=== PATIENT | male | born 2000 | race Caucasian/White ===

== ENCOUNTER 2019-03-24 03:14 | Emergency (ER) | payer MEDICAID ==
[2019-03-24] MEDS ORDERED: Tetracaine HCl/PF 0.5% 4 ML Bottle EYELF ONE (03:39)
[2019-03-24] MEDS ORDERED: Balanced Salt Solution Ophth Irrig 30 ML Bottle EYELF ONE (03:44)
[2019-03-24] MEDS ORDERED: Bacitracin/Polymyxin B Ophth Oint 3.5 GM Tube ONE (04:00)
--- NOTE | 2019-03-24 04:06 | EDM.PDOC ---
ED HPI GENERAL MEDICAL PROBLEM - General Stated Complaint: Left eye irritation Time Seen by Provider: 03/24/19 03:30 Source of Information: Reports: Patient History Limitations: Reports: No Limitations - History of Present Illness INITIAL COMMENTS - FREE TEXT/NARRATIVE: Patient is a 18-year-old who comes into the ER with chief complaint of left eye pain he stated started irritating about 2 or 3 days ago worse today was brought in from work for evaluation and treatment Onset: Gradual Duration: Day(s):, Getting Worse Location: Reports: Face Quality: Reports: Ache, Sharp Severity: Mild Improves with: Reports: None Worsens with: Reports: None (`) Associated Symptoms: Reports: No Other Symptoms Left Eye Pain Score (Numeric/FACES): 6 - Related Data Allergies Allergy/AdvReac Type Severity Reaction Status Date / Time No Known Allergies Allergy Verified 03/24/19 03:15 Home Meds: Home Meds . [No Known Home Meds] 03/24/19 [History] Past Medical History - Past Health History Medical/Surgical History: Denies Medical/Surgical History Social & Family History - Tobacco Use Smoking Status *Q: Never Smoker - Caffeine Use Caffeine Use: Reports: Energy Drinks - Recreational Drug Use Recreational Drug Use: No ED ROS GENERAL - Review of Systems Review Of Systems: See Below Constitutional: Reports: No Symptoms HEENT: Reports: No Symptoms Respiratory: Reports: No Symptoms Cardiovascular: Reports: No Symptoms Endocrine: Reports: No Symptoms GI/Abdominal: Reports: No Symptoms : Reports: No Symptoms Musculoskeletal: Reports: No Symptoms Skin: Reports: No Symptoms Neurological: Reports: No Symptoms Psychiatric: Reports: No Symptoms Hematologic/Lymphatic: Reports: No Symptoms Immunologic: Reports: No Symptoms ED EXAM GENERAL W FULL EYE - Physical Exam Exam: See Below Exam Limited By: No Limitations General Appearance: Alert, WD/WN, No Apparent Distress Eye Exam: Left Eye: Corneal Abrasion, Bilateral Eye: EOMI, PERRL Cornea Exam: Left: Corneal Abrasion (Corneal abrasion at 7:00 superficial), Bilateral: Normal Appearance Pupils: Normal Accommodation Pupillary Size: Bilateral: 3 mm Pupillary Reaction: Bilateral: Brisk Ears: Normal External Exam, Normal Canal, Hearing Grossly Normal, Normal TMs Nose: Normal Inspection, Normal Mucosa, No Blood Throat/Mouth: Normal Inspection, Normal Lips, Normal Teeth, Normal Gums, Normal Oropharynx, Normal Voice, No Airway Compromise Head: Atraumatic, Normocephalic Neck: Normal Inspection, Supple, Non-Tender, Full Range of Motion Respiratory/Chest: No Respiratory Distress, Lungs Clear, Normal Breath Sounds, No Accessory Muscle Use, Chest Non-Tender Cardiovascular: Normal Peripheral Pulses, Regular Rate, Rhythm, No Edema, No Gallop, No JVD, No Murmur, No Rub GI/Abdominal: Normal Bowel Sounds, Soft, Non-Tender, No Organomegaly, No Distention, No Abnormal Bruit, No Mass Back Exam: Normal Inspection, Full Range of Motion, NT Extremities: Normal Inspection Neurological: Alert, Oriented, CN II-XII Intact, Normal Cognition, Normal Gait, Normal Reflexes, No Motor/Sensory Deficits Psychiatric: Normal Affect, Normal Mood Skin Exam: Warm, Dry, Intact, Normal Color, No Rash Lymphatic: No Adenopathy ED EYE w/ Add Procedure - Eye Procedure Alcaine Drops Administered: No (Tetracaine was used for topical anesthesia) Antibiotic Oinment/Drps Admin: Left Eye (Polymyxin ophthalmic ointment was used on the left eye) - Additional/Other Procedure(s) Other (Free Text) Procedure(s) [Text1]: Patient was seen with left eye pain initially we decided to evaluate the eye tetracaine was used for topical anesthesia after appropriate levels of tetracaine cornea was with fluorescein using a black light and it was noted that he had a superficial abrasion at 7:00 the eye was then irrigated with eye flush after irrigating the eye polymyxin was applied and the eye was patched patient tolerated well procedure will be sent home at this time Course - Vital Signs Last Recorded V/S: Last Vital Signs Temp 98.3 F 03/24/19 03:24 Pulse 56 L 03/24/19 03:24 Resp 15 03/24/19 03:24 BP 119/76 03/24/19 03:24 Pulse Ox 100 03/24/19 03:24 - Orders/Labs/Meds Orders: Active Orders 24 hr Category Date Time Status Bacitracin/Polymyxin B [Polysporin Ophth Oint] Med 03/24/19 08:00 Ordered 1 gm EYELF TID Meds: Medications Discontinued Medications Generic Name Dose Route Start Last Admin Trade Name Freq PRN Reason Stop Dose Admin Balanced Salt Solution 10 ml 03/24/19 03:44 Eye Stream Eye Rinse EYELF 03/24/19 03:45 ONETIME ONE Tetracaine HCl 1 ml 03/24/19 03:39 03/24/19 03:41 Tetracaine 0.5% Steri-Unit Summer EYELF 03/24/19 03:40 1 ml ASDIRECTED ONE Administration Departure - Departure Time of Disposition: 04:10 Disposition: Home, Self-Care 01 Condition: Good Clinical Impression: Corneal abrasion, left - Discharge Information *PRESCRIPTION DRUG MONITORING PROGRAM REVIEWED*: No *COPY OF PRESCRIPTION DRUG MONITORING REPORT IN PATIENT HSANDA: No Instructions: Corneal Abrasion Referrals: PCP,None [Primary Care Provider] - Care Plan Goals: Patient seen treated in the ER for corneal abrasion at this time patient will be sent home with an eye patch he should leave it for 24 hours then may take it off follow-up with traffic control flagger if not better. - My Orders Last 24 Hours: My Active Orders 03/24/19 08:00 Bacitracin/Polymyxin B [Polysporin Ophth Oint] 1 gm EYELF TID - Assessment/Plan Last 24 Hours: My Active Orders 03/24/19 08:00 Bacitracin/Polymyxin B [Polysporin Ophth Oint] 1 gm EYELF TID
[2019-03-24] MEDS ORDERED: Bacitracin/Polymyxin B Ophth Oint 3.5 GM Tube EYELF SCH ×2 (08:00)
== END 2019-03-24 04:30 | disposition home or self-care (01) ==
LOC: LL.ED 03:14
DX: S05.02XA Injury of conjunctiva and corneal abrasion without foreign body, left eye, initial encounter (principal); X58.XXXA Exposure to other specified factors, initial encounter
CPT/HCPCS: 99282